=== PATIENT | male | born 1940 | race Caucasian/White ===

== ENCOUNTER 2021-09-21 17:26 | Emergency (ER) | payer OTHER ==
[~2021-09-21] VITALS: Ht 185.4 cm; Wt 99.8 kg
[2021-09-21 19:59] VITALS: BP 162/88
== END 2021-09-21 19:42 | disposition home or self-care (01) ==
LOC: ER 17:42
DX: M62.838 Other muscle spasm (principal); M50.30 Other cervical disc degeneration, unspecified cervical region; I10 Essential (primary) hypertension; M54.9 Dorsalgia, unspecified; G89.29 Other chronic pain
CPT/HCPCS: 70450; 72125; 99283